=== PATIENT | female | born 1955 | race Caucasian/White ===

== ENCOUNTER → 2021-04-23 | Outpatient (CLI) | payer OTHER ==
--- NOTE | 2021-04-23 12:51 | XR ---
Right ankle HISTORY: Pain 3 views of the right ankle There is an enthesophyte present at the insertion of the Achilles tendon. No significant soft tissue swelling. Bone mineralization, joint spaces and alignment are maintained. Small ossific density dista l to the medial malleolus is well-corticated and not felt likely to be acute. There is a plantar calc aneal spur. IMPRESSION: Correlate for history of ankle injury, consider assessment for point tenderness at the me dial malleolus. No evident dislocation.
== END | disposition home or self-care (01) ==
LOC: RADXRYALE 11:27
PROVIDERS: ATTEND Internal Medicine
DX: M25.571 Pain in right ankle and joints of right foot (principal)